=== PATIENT | female | born 2000 | race Caucasian/White ===

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

== ENCOUNTER 2020-04-13 16:37 | Emergency (ER) | payer OTHER, SELFPAY ==
[2020-04-13 16:37] VITALS: BP 132/104; PULSE 107; RESP 22; TEMP 37.1; O2SAT 96; BMI 26.5
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
[2020-04-13 18:34] VITALS: BP 125/87; PULSE 98; RESP 16; TEMP 36.8; O2SAT 98
== END 2020-04-13 18:39 | disposition home or self-care (01) ==
PROVIDERS: Emergency Provider Emergency Medicine; PCP Family Medicine
DX: S16.1XXA Strain of muscle, fascia and tendon at neck level, initial encounter (principal); V43.52XA Car driver injured in collision with other type car in traffic accident, initial encounter; Y92.414 Local residential or business street as the place of occurrence of the external cause; G44.319 Acute post-traumatic headache, not intractable; F17.210 Nicotine dependence, cigarettes, uncomplicated; Z90.09 Acquired absence of other part of head and neck; Z90.49 Acquired absence of other specified parts of digestive tract
CPT/HCPCS: 70450; 72125; 99282